=== PATIENT | male | born 1950 | race Two or more races ===

== ENCOUNTER → 2017-05-30 | Outpatient (CLI) | payer MEDICARE ==
[~2017-05-30] MED LIST: /WARF5TA; ATEN25TA; GLIP5TAB20; GLUC1000; HYDR25TA6; LIPI20TA; PRIN20TA3
[2017-05-30 13:40] LABS: BASO % 0.6 % (0.0-1.0); EOS # 0.2 K/mm3 (0.0-0.50); EOS % 3.1 % (0.0-3.0); LARGE UNSTAINED CELL # 0.2 K/mm3 (0.0-0.4); LARGE UNSTAINED CELL % 2.1 % (0.0-4.0); LYMPH # 1.2 K/mm3 (1.5-4.5); LYMPH % 16.7 % (24.0-44.0); MEAN CORPUSCULAR HEMOGLOBIN 31.7 pg (27.0-33.0); MEAN CORPUSCULAR HGB CONC 34.9 g/dl (32.0-36.5); MONO # 0.4 K/mm3 (0.0-0.8); MONO % 5.9 % (0.0-5.0); NEUTROPHILS % 71.7 % (36.0-66.0); PLATELET COUNT, AUTOMATED 200 k/mm3 (150-450); RED CELL DISTRIBUTION WIDTH 12.2 % (11.5-14.5)
[2017-05-30 14:49] LABS: ALBUMIN/GLOBULIN RATIO 1.6 (1.00-1.93); BILIRUBIN,TOTAL 0.5 MG/DL (0.2-1.0); CALCIUM LEVEL 8.6 MG/DL (8.8-10.2); CREATININE FOR GFR 1.32 MG/DL (0.70-1.30); GLOMERULAR FILTRATION RATE 57.8 (>49); TOTAL PROTEIN 6.5 GM/DL (6.4-8.2)
== END ==
LOC: M WUC 08:32
PROVIDERS: ATTEND Nurse Practitioner Family
DX: E11.9 Type 2 diabetes mellitus without complications (principal); F03.90 Unspecified dementia, unspecified severity, without behavioral disturbance, psychotic disturbance, mood disturbance, and anxiety; I25.10 Atherosclerotic heart disease of native coronary artery without angina pectoris
CPT/HCPCS: 36415; 80053; 80061; 82043; 83036; 85025; G0463

== ENCOUNTER → 2017-07-12 | Outpatient (CLI) | payer MEDICARE ==
--- NOTE | 2017-07-12 09:27 | REP ---
CT Head without contrast HISTORY: Dementia COMPARISON: None Areas of decreased attenuation are present in the periventricular white matter. This represents small-vessel ischemic disease. There is no intraparenchymal hemorrhage, acute infarct, mass or midline shift. The ventricular system and cortical sulci are dilated consistent with mild volume loss. There is no extra cerebral collection. There is no fracture. The visualized sinuses are clear. IMPRESSION: 1. Small vessel ischemic disease. 2. Mild volume loss. Signed by Darren Mcintosh MD 07/12/2017 09:20 A
== END ==
LOC: M RAD 08:56
PROVIDERS: ATTEND Psychiatry & Neurology Neurology
DX: F01.50 Vascular dementia, unspecified severity, without behavioral disturbance, psychotic disturbance, mood disturbance, and anxiety (principal); G30.1 Alzheimer's disease with late onset; F02.80 Dementia in other diseases classified elsewhere, unspecified severity, without behavioral disturbance, psychotic disturbance, mood disturbance, and anxiety

== ENCOUNTER → 2017-07-28 | Outpatient (CLI) | payer MEDICARE ==
--- NOTE | 2017-07-28 13:12 | REP ---
Duplex carotid sonography: History: Retinal hemorrhage left eye. Findings: Antegrade flow was observed in both vertebral arteries. Right carotid: The right common carotid artery is unremarkable on two-dimensional scanning. There is mild mixed plaquing in the right carotid bulb, right ICA and right ECA on two-dimensional scanning. Color flow and spectral Doppler interrogation are unremarkable on the right. Velocity chart right carotid: Right CCA PSV 61 cm/s Right ICA PSV 57 NILE 17 Right ECA PSV 60 Right ICA/CCA ratio normal 0.9. Impression: 0-15% category narrowing in the right ICA by Doppler velocity criteria. Left carotid: The left common carotid artery is unremarkable on two-dimensional scanning. There is mild mixed plaquing in the bulb and proximal ICA on two-dimensional scanning. Color flow and spectral Doppler interrogation are unremarkable on the left. Velocity chart left carotid: Left CCA PSV 59 cm/s Left ICA PSV 70 EDV 33 Left ECA PSV 48 Left ICA/CCA ratio normal 1.2. Impression: 0-15% narrowing in the left ICA by Doppler velocity criteria. Signed by Jameson Sánchez MD 07/28/2017 02:46 P
== END ==
LOC: M RAD 10:41
PROVIDERS: ATTEND Ophthalmology
DX: H35.62 Retinal hemorrhage, left eye (principal); I65.23 Occlusion and stenosis of bilateral carotid arteries

== ENCOUNTER → 2017-11-28 | Outpatient (REF) | payer MEDICARE ==
[2017-11-28 16:05] LABS: ANION GAP 9 MEQ/L (8-16); BASO % 0.4 % (0.0-1.0); BLOOD UREA NITROGEN 20 MG/DL (7-18); CALCIUM LEVEL 8.9 MG/DL (8.8-10.2); CARBON DIOXIDE LEVEL 26 MEQ/L (21-32); CHLORIDE LEVEL 102 MEQ/L (98-107); EOS % 0.3 % (0.0-3.0); GLOMERULAR FILTRATION RATE > 60.0 (>49); GLUCOSE, FASTING 122 MG/DL (80-110); HEMATOCRIT 39.9 % (42.0-52.0); HEMOGLOBIN 13.6 g/dl (14.0-18.0); IMMATURE GRANULOCYTE % 0.4 % (0-0); LYMPH # 1.8 10^3/uL (1.5-4.5); MEAN CORPUSCULAR HEMOGLOBIN 30.5 pg (27.0-33.0); MEAN CORPUSCULAR HGB CONC 34.1 g/dl (32.0-36.5); MEAN CORPUSCULAR VOLUME 89.5 fl (80.0-96.0); MONO # 0.7 10^3/uL (0.0-0.8); MONO % 7.6 % (0.0-5.0); NEUTROPHILS # 6.8 10^3/uL (1.8-7.7); NEUTROPHILS % 72.3 % (36.0-66.0); PLATELET COUNT, AUTOMATED 279 10^3/uL (150-450); POTASSIUM SERUM 4.3 MEQ/L (3.5-5.1); RED BLOOD COUNT 4.46 10^6/uL (4.30-6.10); RED CELL DISTRIBUTION WIDTH 12.3 % (11.5-14.5); SODIUM LEVEL 137 MEQ/L (136-145); WHITE BLOOD COUNT 9.4 10^3/uL (4.0-10.0)
[2017-11-28 16:46] LABS: ESTIMATED AVERAGE GLUCOSE 143 MG/DL (60-110); HEMOGLOBIN A1c 6.6 %
== END ==
LOC: M SFHCPLAZ 12:32
DX: E11.29 Type 2 diabetes mellitus with other diabetic kidney complication (principal); D64.9 Anemia, unspecified
CPT/HCPCS: 83036

== ENCOUNTER 2018-01-13 08:27 | Emergency (ER) | payer MEDICARE ==
[2018-01-13 09:29] LABS: BASO % 0.5 % (0.0-1.0); EOS # 0.1 10^3/uL (0.0-0.50); EOS % 1.4 % (0.0-3.0); HEMATOCRIT 35.4 % (42.0-52.0); HEMOGLOBIN 11.7 g/dl (14.0-18.0); IMMATURE GRANULOCYTE % 0.5 % (0-3.0); LYMPH # 1.2 10^3/uL (1.5-4.5); LYMPH % 16.1 % (24.0-44.0); MEAN CORPUSCULAR HEMOGLOBIN 31.1 pg (27.0-33.0); MEAN CORPUSCULAR HGB CONC 33.1 g/dl (32.0-36.5); MEAN CORPUSCULAR VOLUME 94.1 fl (80.0-96.0); MONO # 0.7 10^3/uL (0.0-0.8); MONO % 9.1 % (0.0-5.0); NEUTROPHILS # 5.3 10^3/uL (1.8-7.7); NEUTROPHILS % 72.4 % (36.0-66.0); PLATELET COUNT, AUTOMATED 272 10^3/uL (150-450); RED BLOOD COUNT 3.76 10^6/uL (4.30-6.10); RED CELL DISTRIBUTION WIDTH 13.3 % (11.5-14.5); WHITE BLOOD COUNT 7.3 10^3/uL (4.0-10.0)
[2018-01-13 09:46] LABS: ANION GAP 9 MEQ/L (8-16); BLOOD UREA NITROGEN 16 MG/DL (7-18); CALCIUM LEVEL 8.7 MG/DL (8.8-10.2); CARBON DIOXIDE LEVEL 26 MEQ/L (21-32); CHLORIDE LEVEL 105 MEQ/L (98-107); CPK CREATINE PHOSPHOKINASE 115 U/L (39-308); CREATININE FOR GFR 0.96 MG/DL (0.70-1.30); GLOMERULAR FILTRATION RATE > 60.0 (>49); GLUCOSE, FASTING 269 MG/DL (70-100); MAGNESIUM LEVEL 1.8 MG/DL (1.8-2.4); POTASSIUM SERUM 4.3 MEQ/L (3.5-5.1); SODIUM LEVEL 140 MEQ/L (136-145); TROPONIN I 0.02 NG/ML (< 0.10)
[2018-01-13 09:52] LABS: CK-MB VALUE MASS 2.2 NG/ML (0.0-3.6); MB/CK RELATIVE INDEX 1.91 (< OR =4)
[2018-01-13 11:49] LABS: CPK CREATINE PHOSPHOKINASE 114 U/L (39-308); TROPONIN I < 0.02 NG/ML (< 0.10)
[2018-01-13 11:50] LABS: CK-MB VALUE MASS 1.8 NG/ML (0.0-3.6); MB/CK RELATIVE INDEX 1.57 (< OR =4)
== END 2018-01-13 12:33 | disposition home or self-care (01) ==
LOC: M ED 08:27
DX: R00.2 Palpitations (principal); I48.2 Chronic atrial fibrillation; I25.10 Atherosclerotic heart disease of native coronary artery without angina pectoris; I10 Essential (primary) hypertension; E11.9 Type 2 diabetes mellitus without complications; Z79.01 Long term (current) use of anticoagulants; Z79.84 Long term (current) use of oral hypoglycemic drugs; Z79.899 Other long term (current) drug therapy; Z95.0 Presence of cardiac pacemaker; Z95.5 Presence of coronary angioplasty implant and graft
CPT/HCPCS: 93005

== ENCOUNTER → 2018-01-31 | Outpatient (REF) | payer MEDICARE, MEDICAID ==
[2018-01-31 08:10] LABS: HEMATOCRIT 38.5 % (42.0-52.0); HEMOGLOBIN 12.8 g/dl (14.0-18.0); MEAN CORPUSCULAR HEMOGLOBIN 31.1 pg (27.0-33.0); MEAN CORPUSCULAR HGB CONC 33.2 g/dl (32.0-36.5); MEAN CORPUSCULAR VOLUME 93.4 fl (80.0-96.0); PLATELET COUNT, AUTOMATED 271 10^3/uL (150-450); RED BLOOD COUNT 4.12 10^6/uL (4.30-6.10); RED CELL DISTRIBUTION WIDTH 12.6 % (11.5-14.5); WHITE BLOOD COUNT 7.8 10^3/uL (4.0-10.0)
[2018-01-31 08:34] LABS: ESTIMATED AVERAGE GLUCOSE 143 MG/DL (60-110); HEMOGLOBIN A1c 6.6 %
[2018-01-31 08:44] LABS: MAU/CREAT RATIO 52.8 MCG/MG (0.0-30.0)
[2018-01-31 08:46] LABS: ALBUMIN 4.2 GM/DL (3.2-5.2); ALBUMIN/GLOBULIN RATIO 1.62 (1.00-1.93); ALKALINE PHOSPHATASE 56 U/L (45-117); ALT/SGPT 23 U/L (12-78); ANION GAP 10 MEQ/L (8-16); AST/SGOT 17 U/L (7-37); BILIRUBIN,TOTAL 0.6 MG/DL (0.2-1.0); BLOOD UREA NITROGEN 19 MG/DL (7-18); CALCIUM LEVEL 8.9 MG/DL (8.8-10.2); CARBON DIOXIDE LEVEL 26 MEQ/L (21-32); CHLORIDE LEVEL 106 MEQ/L (98-107); CHOLESTEROL LEVEL 150 MG/DL (<200); CHOLESTEROL RISK RATIO 3.846 (<5); CREATININE FOR GFR 1.09 MG/DL (0.70-1.30); GLOMERULAR FILTRATION RATE > 60.0 (>49); GLUCOSE, FASTING 179 MG/DL (70-100); HDL CHOLESTEROL 39 MG/DL (>40); LDL CHOLESTEROL 78.6 MG/DL (<100); NON-HDL-C 111 MG/DL; POTASSIUM SERUM 4.4 MEQ/L (3.5-5.1); SODIUM LEVEL 142 MEQ/L (136-145); TOTAL PROTEIN 6.8 GM/DL (6.4-8.2); TRIGLYCERIDES LEVEL 162 MG/DL (<150)
== END ==
LOC: SKLAB6 07:00
DX: I48.91 Unspecified atrial fibrillation (principal); E11.9 Type 2 diabetes mellitus without complications; D64.9 Anemia, unspecified; I11.0 Hypertensive heart disease with heart failure; G30.0 Alzheimer's disease with early onset; I50.9 Heart failure, unspecified
CPT/HCPCS: 84443

== ENCOUNTER → 2018-05-04 | Outpatient (REF) | payer MEDICARE, MEDICAID ==
[2018-05-04 08:26] LABS: CHOLESTEROL LEVEL 105 MG/DL (<200); HDL CHOLESTEROL 41 MG/DL (>40); LDL CHOLESTEROL 31.4 MG/DL (<100); NON-HDL-C 64 MG/DL; TRIGLYCERIDES LEVEL 163 MG/DL (<150)
[2018-05-04 08:32] LABS: ESTIMATED AVERAGE GLUCOSE 140 MG/DL (60-110); HEMOGLOBIN A1c 6.5 %
== END ==
LOC: SKLAB6 07:00
DX: F03.91 Unspecified dementia, unspecified severity, with behavioral disturbance (principal); E11.9 Type 2 diabetes mellitus without complications
CPT/HCPCS: 83036

== ENCOUNTER → 2018-08-10 | Outpatient (REF) | payer MEDICARE, MEDICAID ==
[2018-08-10 09:56] LABS: ANION GAP 8 MEQ/L (8-16); BLOOD UREA NITROGEN 19 MG/DL (7-18); CALCIUM LEVEL 9.2 MG/DL (8.8-10.2); CARBON DIOXIDE LEVEL 25 MEQ/L (21-32); CHLORIDE LEVEL 109 MEQ/L (98-107); CREATININE FOR GFR 0.93 MG/DL (0.70-1.30); GLOMERULAR FILTRATION RATE > 60.0 (>49); GLUCOSE, FASTING 106 MG/DL (70-100); POTASSIUM SERUM 4.8 MEQ/L (3.5-5.1); SODIUM LEVEL 142 MEQ/L (136-145)
== END ==
LOC: SKLAB8 07:00
DX: I48.91 Unspecified atrial fibrillation (principal); E78.5 Hyperlipidemia, unspecified
CPT/HCPCS: 80048

== ENCOUNTER → 2018-10-18 | Outpatient (REF) | payer MEDICARE, MEDICAID ==
[2018-10-18 16:21] LABS: HEMATOCRIT 34.4 % (42.0-52.0); HEMOGLOBIN 11.3 g/dl (13.5-17.5); MEAN CORPUSCULAR HEMOGLOBIN 30.5 pg (27.0-33.0); MEAN CORPUSCULAR HGB CONC 32.8 g/dl (32.0-36.5); MEAN CORPUSCULAR VOLUME 92.7 fl (80.0-96.0); PLATELET COUNT, AUTOMATED 251 10^3/uL (150-450); RED BLOOD COUNT 3.71 10^6/uL (4.30-6.10); RED CELL DISTRIBUTION WIDTH 12.6 % (11.5-14.5); WHITE BLOOD COUNT 8.6 10^3/uL (4.0-10.0)
[2018-10-18 16:43] LABS: ANION GAP 10 MEQ/L (8-16); BLOOD UREA NITROGEN 18 MG/DL (7-18); CALCIUM LEVEL 8.4 MG/DL (8.8-10.2); CARBON DIOXIDE LEVEL 24 MEQ/L (21-32); CHLORIDE LEVEL 107 MEQ/L (98-107); CREATININE FOR GFR 1.05 MG/DL (0.70-1.30); GLOMERULAR FILTRATION RATE > 60.0 (>49); GLUCOSE, FASTING 134 MG/DL (70-100); POTASSIUM SERUM 4.4 MEQ/L (3.5-5.1); SODIUM LEVEL 141 MEQ/L (136-145)
== END ==
LOC: SKLAB8 14:50
DX: E11.9 Type 2 diabetes mellitus without complications (principal)
CPT/HCPCS: 80048

== ENCOUNTER → 2018-11-09 | Outpatient (REF) | payer MEDICARE, MEDICAID ==
[~2018-11-09] MED LIST changes: +ELIQ5TAB PO; +GLIP1TAB51 PO; +GLIP2.5T6 PO; +LISI-538 PO; +METF10004 PO; +METO1TAB32 PO; +PLAV1TAB2 PO; +QUET1TAB7 PO; +TRAZ-160 PO
[2018-11-09 08:10] LABS: ALBUMIN 3.4 GM/DL (3.2-5.2); ALT/SGPT 15 U/L (12-78); BILIRUBIN,TOTAL 0.3 MG/DL (0.2-1.0); BLOOD UREA NITROGEN 15 MG/DL (7-18); CALCIUM LEVEL 8.2 MG/DL (8.8-10.2); CARBON DIOXIDE LEVEL 27 MEQ/L (21-32); CHLORIDE LEVEL 107 MEQ/L (98-107); CHOLESTEROL LEVEL 108 MG/DL (<200); CHOLESTEROL RISK RATIO 3.176 (<5); CREATININE FOR GFR 0.93 MG/DL (0.70-1.30); GLOMERULAR FILTRATION RATE > 60.0 (>49); GLUCOSE, FASTING 90 MG/DL (70-100); HDL CHOLESTEROL 34 MG/DL (>40); LDL CHOLESTEROL 43 MG/DL (<100); NON-HDL-C 74 MG/DL; POTASSIUM SERUM 4.3 MEQ/L (3.5-5.1); SODIUM LEVEL 143 MEQ/L (136-145); TOTAL PROTEIN 5.9 GM/DL (6.4-8.2); TRIGLYCERIDES LEVEL 154 MG/DL (<150)
[2018-11-09 08:25] LABS: HEMOGLOBIN A1c 6.2 %
== END ==
LOC: SKLAB8 07:00
PROVIDERS: ATTEND Family Medicine
DX: F03.90 Unspecified dementia, unspecified severity, without behavioral disturbance, psychotic disturbance, mood disturbance, and anxiety (principal); I48.91 Unspecified atrial fibrillation; E11.9 Type 2 diabetes mellitus without complications

== ENCOUNTER → 2018-11-22 | Outpatient (REF) | payer MEDICARE, MEDICAID ==
--- NOTE | 2018-11-22 16:48 | REP ---
LUMBAR SPINE, FIVE VIEWS: HISTORY: Back pain. There is no acute fracture or subluxation. The lumbar intervertebral discs are decreased in height consistent with disc degeneration. Osteophytes are present throughout the lumbar spine. There is narrowing of the L4-5 and L5-S1 facet joints. IMPRESSION: Degenerative change as described above. Electronically Signed by Darren Mcintosh MD 11/22/2018 04:51 P
== END ==
LOC: SKLAB8 14:00
PROVIDERS: ATTEND Family Medicine
DX: M54.5 Low back pain (principal)

== ENCOUNTER → 2019-02-01 | Outpatient (REF) | payer MEDICARE, MEDICAID ==
[~2019-02-01] MED LIST changes: +GLIP10TA18 PO; -GLIP1TAB51 PO
[2019-02-01 11:32] LABS: AMORPHOUS SEDIMENT SMALL (NEGATIVE); APPEARANCE, URINE TURBID (CLEAR); BACTERIA, URINE AUTO 2+ (NEGATIVE); BILIRUBIN, URINE AUTO NEGATIVE (NEGATIVE); BLOOD, URINE BLOOD 3+ (NEGATIVE); COLOR, URINE AMBER (YELLOW); GLUCOSE, URINE (UA) AUTO NEGATIVE (NEGATIVE); KETONE, URINE AUTO NEGATIVE (NEGATIVE); LEUKOCYTE ESTERASE, URINE AUTO 3+ (NEGATIVE); MUCUS, URINE SMALL (NEGATIVE); NITRITE, URINE AUTO NEGATIVE (NEGATIVE); PROTEIN, URINE AUTO 2+ mg/dL (NEGATIVE); RBC, URINE AUTO TNTC /HPF (0-3); RENAL EPITHELIAL CELLS 3 /HPF; SPECIFIC GRAVITY URINE AUTO 1.013 (1.002-1.035); SQUAMOUS EPITHELIAL CELL UR AU 2 /HPF (0-6); UROBILINOGEN, URINE AUTO 0.2 mg/dL (0.0-2.0); WBC, URINE AUTO TNTC /HPF (0-3)
[2019-02-01 11:39] LABS: HEMATOCRIT 35.4 % (42.0-52.0); HEMOGLOBIN 11.6 g/dl (13.5-17.5); MEAN CORPUSCULAR HEMOGLOBIN 29.7 pg (27.0-33.0); MEAN CORPUSCULAR HGB CONC 32.8 g/dl (32.0-36.5); MEAN CORPUSCULAR VOLUME 90.8 fl (80.0-96.0); PLATELET COUNT, AUTOMATED 357 10^3/uL (150-450); WHITE BLOOD COUNT 12.8 10^3/uL (4.0-10.0)
[2019-02-01 12:10] LABS: ERYTHROCYTE SEDIMENTATION RATE 25 mm/hr (0-20)
[2019-02-01 12:34] LABS: ALBUMIN 3.5 GM/DL (3.2-5.2); ALT/SGPT 29 U/L (12-78); BILIRUBIN,TOTAL 0.2 MG/DL (0.2-1.0); BLOOD UREA NITROGEN 20 MG/DL (7-18); C REACTIVE PROTEIN QUANTITATIV 0.57 MG/DL (0.00-0.30); CALCIUM LEVEL 8.7 MG/DL (8.8-10.2); CARBON DIOXIDE LEVEL 29 MEQ/L (21-32); CHLORIDE LEVEL 105 MEQ/L (98-107); CREATININE FOR GFR 1.18 MG/DL (0.70-1.30); GLOMERULAR FILTRATION RATE > 60.0 (>49); GLUCOSE, FASTING 110 MG/DL (70-100); POTASSIUM SERUM 4.8 MEQ/L (3.5-5.1); SODIUM LEVEL 137 MEQ/L (136-145); TOTAL PROTEIN 6.7 GM/DL (6.4-8.2)
== END ==
LOC: SKLAB8 10:58
PROVIDERS: ATTEND Family Medicine
DX: R31.9 Hematuria, unspecified (principal)

== ENCOUNTER → 2019-02-05 | Outpatient (REF) | payer MEDICARE, MEDICAID ==
[2019-02-05 08:38] LABS: CALCIUM LEVEL 9.1 MG/DL (8.8-10.2); CREATININE FOR GFR 1.27 MG/DL (0.70-1.30); POTASSIUM SERUM 5.1 MEQ/L (3.5-5.1)
== END ==
LOC: SKLAB8 08:00
PROVIDERS: ATTEND Family Medicine
DX: I10 Essential (primary) hypertension (principal)

== ENCOUNTER → 2019-02-08 | Outpatient (REF) | payer MEDICARE, MEDICAID ==
[2019-02-08 08:59] LABS: CALCIUM LEVEL 9.5 MG/DL (8.8-10.2); CREATININE FOR GFR 1.32 MG/DL (0.70-1.30); GLOMERULAR FILTRATION RATE 57.4 (>49); POTASSIUM SERUM 5.1 MEQ/L (3.5-5.1); THYROID STIMULATING HORMONE 1.56 uIU/ML (0.358-3.740)
== END ==
LOC: SKLAB8 08:00
PROVIDERS: ATTEND Family Medicine
DX: I48.91 Unspecified atrial fibrillation (principal); E11.9 Type 2 diabetes mellitus without complications; F03.90 Unspecified dementia, unspecified severity, without behavioral disturbance, psychotic disturbance, mood disturbance, and anxiety

== ENCOUNTER → 2019-02-23 | Outpatient (REF) | payer MEDICARE, MEDICAID ==
[~2019-02-23] MED LIST changes: -/WARF5TA; +COUM1TAB17
[2019-02-23 10:16] LABS: APPEARANCE, URINE CLEAR (CLEAR); BACTERIA, URINE AUTO NEGATIVE (NEGATIVE); BILIRUBIN, URINE AUTO NEGATIVE (NEGATIVE); BLOOD, URINE BLOOD NEGATIVE (NEGATIVE); COLOR, URINE YELLOW (YELLOW); GLUCOSE, URINE (UA) AUTO NEGATIVE (NEGATIVE); KETONE, URINE AUTO NEGATIVE (NEGATIVE); LEUKOCYTE ESTERASE, URINE AUTO NEGATIVE (NEGATIVE); NITRITE, URINE AUTO NEGATIVE (NEGATIVE); PROTEIN, URINE AUTO NEGATIVE (NEGATIVE); RBC, URINE AUTO 0 /HPF (0-3); SPECIFIC GRAVITY URINE AUTO 1.012 (1.002-1.035); SQUAMOUS EPITHELIAL CELL UR AU 0 /HPF (0-6); UROBILINOGEN, URINE AUTO 0.2 mg/dL (0.0-2.0); WBC, URINE AUTO 1 /HPF (0-3)
== END ==
LOC: SKLAB8 09:45
PROVIDERS: ATTEND Family Medicine
DX: F03.91 Unspecified dementia, unspecified severity, with behavioral disturbance (principal); R82.998 Other abnormal findings in urine

== ENCOUNTER → 2019-04-14 | Outpatient (REF) | payer MEDICARE, MEDICAID ==
[2019-04-14 07:15] LABS: HEMATOCRIT 31.9 % (42.0-52.0); HEMOGLOBIN 10.6 g/dl (13.5-17.5); MEAN CORPUSCULAR HGB CONC 33.2 g/dl (32.0-36.5); MEAN CORPUSCULAR VOLUME 93.3 fl (80.0-96.0); PLATELET COUNT, AUTOMATED 347 10^3/uL (150-450); RED BLOOD COUNT 3.42 10^6/uL (4.30-6.10); WHITE BLOOD COUNT 9.4 10^3/uL (4.0-10.0)
[2019-04-14 07:45] LABS: BLOOD UREA NITROGEN 17 MG/DL (7-18); CALCIUM LEVEL 8.6 MG/DL (8.8-10.2); CARBON DIOXIDE LEVEL 23 MEQ/L (21-32); CHLORIDE LEVEL 103 MEQ/L (98-107); CREATININE FOR GFR 1.03 MG/DL (0.70-1.30); GLOMERULAR FILTRATION RATE > 60.0 (>49); GLUCOSE, FASTING 220 MG/DL (70-100); POTASSIUM SERUM 4.4 MEQ/L (3.5-5.1); SODIUM LEVEL 136 MEQ/L (136-145)
== END ==
LOC: SKLAB8 04-13 22:00
PROVIDERS: ATTEND Family Medicine
DX: R23.1 Pallor (principal)

== ENCOUNTER 2019-05-09 10:42 | Observation (INO) | payer MEDICARE, MEDICAID ==
[~2019-05-09] VITALS: Ht 175.3 cm; Wt 114.8 kg
[~2019-05-09 10:42] MED LIST changes: -TRAZ-160 PO; +TRAZ-252 PO
[2019-05-09] MEDS ORDERED: LEXA1TAB2 PO (11:05)
[2019-05-09] MEDS ORDERED: RISP1TAB3 PO (11:05)
[2019-05-09] MEDS ORDERED: BUSP10TA (11:05)
[2019-05-09] MEDS ORDERED: DIVA250T67 PO (11:05)
[2019-05-09] MEDS ORDERED: LORA0.5T11 PO (11:05)
[2019-05-09] MEDS ORDERED: LISI-542 PO (11:05)
[2019-05-09] MEDS ORDERED: DULC10SU2 PR (11:05)
[2019-05-09] MEDS ORDERED: TRAZ-252 PO (11:05)
[2019-05-09] MEDS ORDERED: ASPI81TA85 PO (11:05)
[2019-05-09] MEDS ORDERED: ELIQ5TAB PO (11:05)
[2019-05-09 11:46] LABS: HEMATOCRIT 33.9 % (42.0-52.0); HEMOGLOBIN 11.1 g/dl (13.5-17.5); MEAN CORPUSCULAR HGB CONC 32.7 g/dl (32.0-36.5); MEAN CORPUSCULAR VOLUME 91.6 fl (80.0-96.0); PLATELET COUNT, AUTOMATED 237 10^3/uL (150-450); WHITE BLOOD COUNT 6.7 10^3/uL (4.0-10.0)
[2019-05-09 12:25] LABS: ACETAMINOPHEN LEVEL < 2.0 UG/ML (10.0-30.0); ALBUMIN 3.5 GM/DL (3.2-5.2); ALT/SGPT 28 U/L (12-78); BILIRUBIN,DIRECT 0.2 MG/DL (0.0-0.2); BILIRUBIN,TOTAL 0.4 MG/DL (0.2-1.0); BLOOD UREA NITROGEN 20 MG/DL (7-18); CALCIUM LEVEL 8.5 MG/DL (8.8-10.2); CARBON DIOXIDE LEVEL 23 MEQ/L (21-32); CHLORIDE LEVEL 106 MEQ/L (98-107); CREATININE FOR GFR 0.97 MG/DL (0.70-1.30); ETHYL ALCOHOL (ETHANOL) 0.003 % (0.000-0.010); GLOMERULAR FILTRATION RATE > 60.0 (>49); GLUCOSE, FASTING 104 MG/DL (70-100); POTASSIUM SERUM 4.6 MEQ/L (3.5-5.1); SALICYLATE LEVEL < 1.7 MG/DL (5.0-30.0); SODIUM LEVEL 138 MEQ/L (136-145); TOTAL PROTEIN 6.1 GM/DL (6.4-8.2)
[2019-05-09] MEDS ORDERED: HALOPERIDOL 5 MG/ML VIAL (J1630) IM STA (13:01)
[2019-05-09] MEDS ORDERED: ACET-907 PO ×2 (15:14)
[2019-05-09] MEDS ORDERED: CRES40TA PO (15:14)
[2019-05-09] MEDS ORDERED: MOM30SS PO (15:14)
[2019-05-09] MEDS ORDERED: BUSP-29 PO (15:14)
[2019-05-09] MEDS ORDERED: ENEMENE PR (15:14)
[2019-05-09] MEDS ORDERED: BISACODYL 10 MG SUPP PR PRN (15:30)
[2019-05-09] MEDS ORDERED: **NOTE PATIENT COMMENT** MISC XX SCH (15:30)
[2019-05-09] MEDS ORDERED: ACETAMINOPHEN TAB 650MG DOSE (2X325MG) PO PRN (15:30)
[2019-05-09] MEDS ORDERED: MOM 30ML SUSPENSION UDC PO PRN (15:30)
--- NOTE | 2019-05-09 15:49 | HPE ---
DATE OF ADMISSION: 05/09/2019 PRIMARY CARE PROVIDER: Dr. Dexter Almeida[facility]. PRINCIPAL DIAGNOSIS: Uncontrollable behavior in a patient with dementia. HISTORY: Darren Mesa is an unfortunately 68-year-old with advanced dementia. He was sent over by [facility] because his behavior was too disruptive to manage there, this is outlined in the notes from the nurses, but to summarize, he was walking around naked, he was picking his skin and leaving blood on the med cart. He was saying inappropriate things to the nurses. He was acting in childish behavior with a lot of mood swings and sexual verbalizations. It should be noted that he had a psychiatric admission at [facility] earlier in 2019. Medications were adjusted, but it does not sound as though that it made any difference in behavior. He used to be followed by [facility]. Most recently, 08/09/2017, by Dr. Sumaya Levi and Dr. Cunningham. He was seen by a psychiatric consultation on 02/14/[address] Yarbrough. I reviewed his office chart, he previously had Dr. Ryan Coker as the primary care provider. At that time he was being treated for atrial fibrillation, coronary artery disease with coronary artery bypass graft (CABG) times five and coronary stents done in [place], [place] and a pacemaker, history of hypertension, hyperlipidemia, type 2 diabetes with proteinuria. FAMILY HISTORY: Father of cancer. Mother had cancer and history of thyroid disease. SOCIAL HISTORY: He does not smoke. He had significant alcohol intake. He apparently has a college education. ALLERGIES: None. MEDICATIONS: Per flow sheet. REVIEW OF SYSTEMS: Not obtainable. PHYSICAL EXAMINATION: VITAL SIGNS: Per flow sheet GENERAL APPEARANCE: He is comfortable and in no distress. He is visiting his sitter. He clearly has advanced dementia. He does follow commands. Struck by the emotional lability of his interaction. When I asked him to sit down, he looked very distraught and asked if he had been a "bad boy." Other times he seemed to become agitated over minimal provocation. Pupils are equal, round and react to light. Tympanic membranes normal. Neck with no masses. LUNGS: Clear. HEART: Without murmur. ABDOMEN: Soft, nontender. No masses. EXTREMITIES: No peripheral edema. NEUROLOGIC: Nonfocal exam. LABORATORIES: Complete blood count (CBC) unremarkable. CMP unremarkable. Last hemoglobin A1/c was just 1 month ago. TSH normal. Urine could not be obtained due to behavioral problems. He had an Escherichia (E) coli urinary tract infection (UTI) on 02/01/2019. IMPRESSION: 1. Dementia with behavioral disturbance, which currently is beyond what the nursing staff at [facility] are able to safely handle. PLAN: The patient will be admitted to the [facility] service. The patient has a Medical Orders for Life Sustaining Treatment (MOLST) form, which is comfort measures only. It also specifies do not hospitalize unless there are symptoms beyond the capacity of the alf facility to handle. Plan to continue his current medications. We will increase the dose of his Risperdal. He just had a psychiatry consultation so I am not sure what we are going to gain from repeating that. Some of his behavior suggests that he might have pseudobulbar affect, particularly the emotional lability. He may benefit on medication, Nuedexta, which is a dextromethorphan / quinidine with Food and Drug Administration approval for pseudobulbar affect. I will see if pharmacy can obtain this. It is usually dosed 20 mg /10 mg every 12 hours as a maintenance dose after taking it once daily for 7 days. Other medications used for pseudobulbar affect include SSRIs and TZAs, Luvox 100 mg per day as a target dose had some success. Diabetes. Would continue his current regimen. Atrial fibrillation. He continues on Eliquis. Coronary artery disease. Antiplatelet drugs.
[2019-05-09] MEDS: LORazepam 2 MG/ML VIAL (J2060) IM PRN (16:56)
[2019-05-09] MEDS: metFORMIN (GLUCOPHAGE) 1000 MG TABLET PO SCH (16:56)
[2019-05-09] MEDS: busPIRone 10 MG TAB PO SCH ×2 (16:56→22:20)
[2019-05-09 20:00] VITALS: BP 142/80
[2019-05-09 20:00] LABS: AMPHETAMINES LEVEL URINE NEGATIVE (NEGATIVE); BARBITURATES URINE NEGATIVE (NEGATIVE); BENZODIAZEPINES URINE NEGATIVE (NEGATIVE); CANNABINOIDS URINE NEGATIVE (NEGATIVE); COCAINE METABOLITE URINE NEGATIVE (NEGATIVE); METHADONE URINE NEGATIVE (NEGATIVE); OPIATES URINE NEGATIVE (NEGATIVE); PHENCYCLIDINE URINE NEGATIVE (NEGATIVE)
[2019-05-09] MEDS ORDERED: LORazepam 0.5 MG TAB PO SCH (21:00)
[2019-05-09] MEDS: DIVALPROEX 250 MG TAB PO SCH (22:18)
[2019-05-09] MEDS: traZODone 50 MG TAB PO SCH (22:19)
[2019-05-09] MEDS: LISINOPRIL 5 MG TAB PO SCH (22:19)
[2019-05-09] MEDS: risperiDONE 2 MG TAB PO SCH (22:19)
[2019-05-09] MEDS: fluvoxaMINE MALEATE 50 MG TAB PO SCH (22:19)
[2019-05-09] MEDS: APIXABAN 5 MG TAB (ELIQUIS) PO SCH (22:19)
[2019-05-09] MEDS: ROSUVASTATIN 10 MG TAB (CRESTOR) PO SCH (22:20)
[2019-05-09] MEDS: METOPROLOL SUCC *XL* 25MG TAB (TopROL *XL*) PO SCH (22:20)
[2019-05-10 06:00] VITALS: BP 122/60
[2019-05-10] MEDS: risperiDONE 2 MG TAB PO SCH ×2 (08:06→21:14)
[2019-05-10] MEDS: APIXABAN 5 MG TAB (ELIQUIS) PO SCH ×2 (08:06→21:16)
[2019-05-10] MEDS: metFORMIN (GLUCOPHAGE) 1000 MG TABLET PO SCH ×2 (08:06→17:15)
[2019-05-10] MEDS: ASPIRIN 81 MG ENTERIC TAB PO SCH (08:06)
[2019-05-10] MEDS: busPIRone 10 MG TAB PO SCH ×3 (08:06→21:14)
[2019-05-10] MEDS: DIVALPROEX 250 MG TAB PO SCH ×2 (08:06→21:14)
[2019-05-10] MEDS: ESCITALOPRAM OXALATE 10 MG TAB (LEXAPRO) PO SCH (08:06)
[2019-05-10] MEDS: ACETAMINOPHEN TAB 650MG DOSE (2X325MG) PO SCH (08:07)
[2019-05-10] MEDS ORDERED: RISP2TAB32 PO (11:39)
[2019-05-10] MEDS ORDERED: FLUV50TA PO (11:39)
--- NOTE | 2019-05-10 12:19 | DSES ---
DATE OF ADMISSION: 05/09/2019 DATE OF DISCHARGE: PRINCIPAL DIAGNOSIS: Behavioral disturbance. HISTORY: Darren Mesa has dementia. He was sent by [facility] for uncontrolled behavior with behaviors that are outlined in my history and physical. He had a Medical Orders for Life-Sustaining Treatment (MOLST) form that specified not to be hospitalized unless he had a condition that could not be controlled at the halfway. HOSPITAL COURSE: I admitted him to a medical bed and adjusted his regimen. In particular, we stopped the Ativan as I was concerned that he had some frontal lobe release behaviors, and addition of Ativan or other benzodiazepines would only exacerbate that problem. I increased his Risperdal and started him on Luvox 50 mg daily under the belief that he was exhibiting some pseudobulbar affect behavior, particularly his emotional lability. (He would potentially benefit from Nuedexta, which is FDA approved for pseudobulbar affect, 20 mg/10 mg daily for seven days then twice a day. Unfortunately, that is not our hospital formulary; it would have to be ordered after he is back at [facility]. He was not seen by psychiatry as they just did a consult on him a few months ago. Discussion with the on-call psychiatrist took place this morning, and they suggested avoiding any benzodiazepines, for reasons that I have outlined above, and considering using a dissolvable Zyprexa strip that could augment his current regimen. They recommend 2.5 to 5 mg as needed up to three times a day. I did not change any of his other regimen. SIGNIFICANT LABS: Labs were outlined yesterday. Despite the fact he came from the halfway, someone felt obligated to get a tox screen on him last night, which showed that he is not ingesting anything that he would not be given by the nurses at the halfway. DISPOSITION: He is discharged back to [facility]. His regimen has been changed.
[2019-05-10 14:00] VITALS: BP 140/79
[2019-05-10 18:00] VITALS: BP 153/78
[2019-05-10] MEDS: fluvoxaMINE MALEATE 50 MG TAB PO SCH (21:14)
[2019-05-10] MEDS: METOPROLOL SUCC *XL* 25MG TAB (TopROL *XL*) PO SCH (21:15)
[2019-05-10] MEDS: traZODone 50 MG TAB PO SCH (21:16)
[2019-05-10] MEDS: LISINOPRIL 5 MG TAB PO SCH (21:16)
[2019-05-10 22:00] VITALS: BP 140/68
[2019-05-11] MEDS: LORazepam 2 MG/ML VIAL (J2060) IM PRN (03:00)
[2019-05-11] MEDS ORDERED: OLANZapine 2.5MG TABLET PO ONE (04:00)
[2019-05-11 06:00] VITALS: BP 116/60
[2019-05-11] MEDS: metFORMIN (GLUCOPHAGE) 1000 MG TABLET PO SCH ×2 (08:33→17:14)
[2019-05-11] MEDS: busPIRone 10 MG TAB PO SCH ×3 (08:33→19:55)
[2019-05-11] MEDS: DIVALPROEX 250 MG TAB PO SCH ×2 (08:33→19:56)
[2019-05-11] MEDS: ESCITALOPRAM OXALATE 10 MG TAB (LEXAPRO) PO SCH (08:33)
[2019-05-11] MEDS: ASPIRIN 81 MG ENTERIC TAB PO SCH (08:33)
[2019-05-11] MEDS: risperiDONE 2 MG TAB PO SCH ×2 (08:33→19:56)
[2019-05-11] MEDS: ACETAMINOPHEN TAB 650MG DOSE (2X325MG) PO SCH (08:34)
[2019-05-11] MEDS: APIXABAN 5 MG TAB (ELIQUIS) PO SCH ×2 (08:34→19:56)
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
[2019-05-11 13:42] LABS: HEMATOCRIT 35.5 % (42.0-52.0); HEMOGLOBIN 11.5 g/dl (13.5-17.5); MEAN CORPUSCULAR HEMOGLOBIN 29.3 pg (27.0-33.0); MEAN CORPUSCULAR HGB CONC 32.4 g/dl (32.0-36.5); MEAN CORPUSCULAR VOLUME 90.3 fl (80.0-96.0); PLATELET COUNT, AUTOMATED 290 10^3/uL (150-450); RED BLOOD COUNT 3.93 10^6/uL (4.30-6.10); WHITE BLOOD COUNT 6.6 10^3/uL (4.0-10.0)
[2019-05-11 14:10] LABS: ALBUMIN 3.3 GM/DL (3.2-5.2); ALT/SGPT 23 U/L (12-78); BILIRUBIN,TOTAL 0.4 MG/DL (0.2-1.0); BLOOD UREA NITROGEN 15 MG/DL (7-18); CALCIUM LEVEL 9.2 MG/DL (8.8-10.2); CARBON DIOXIDE LEVEL 25 MEQ/L (21-32); CHLORIDE LEVEL 104 MEQ/L (98-107); CREATININE FOR GFR 1.02 MG/DL (0.70-1.30); FOLATE 15.7 NG/ML (>5.4); GLOMERULAR FILTRATION RATE > 60.0 (>49); GLUCOSE, FASTING 143 MG/DL (70-100); POTASSIUM SERUM 4.4 MEQ/L (3.5-5.1); SODIUM LEVEL 140 MEQ/L (136-145); VITAMIN B12 LEVEL 241 PG/ML (247-911)
--- NOTE | 2019-05-11 14:39 | REP ---
PORTABLE CHEST: AP portable view of the chest is performed and compared to prior study of 03/27/2010. There is mild cardiomegaly. There is no acute infiltrate. There is calcification of the thoracic aorta. Mediastinal silhouette is unremarkable. There is a left single-lead pacemaker. Multiple sternal wires are present. IMPRESSION: Mild cardiomegaly. No acute infiltrate. Unreviewed
[2019-05-11 16:01] LABS: APPEARANCE, URINE CLEAR (CLEAR); BACTERIA, URINE AUTO NEGATIVE (NEGATIVE); BILIRUBIN, URINE AUTO NEGATIVE (NEGATIVE); BLOOD, URINE BLOOD NEGATIVE (NEGATIVE); COLOR, URINE YELLOW (YELLOW); GLUCOSE, URINE (UA) AUTO NEGATIVE (NEGATIVE); KETONE, URINE AUTO NEGATIVE (NEGATIVE); LEUKOCYTE ESTERASE, URINE AUTO NEGATIVE (NEGATIVE); MUCUS, URINE SMALL (NEGATIVE); NITRITE, URINE AUTO NEGATIVE (NEGATIVE); PROTEIN, URINE AUTO NEGATIVE (NEGATIVE); RBC, URINE AUTO 2 /HPF (0-3); SPECIFIC GRAVITY URINE AUTO 1.011 (1.002-1.035); SQUAMOUS EPITHELIAL CELL UR AU 0 /HPF (0-6); UROBILINOGEN, URINE AUTO 0.2 mg/dL (0.0-2.0); WBC, URINE AUTO 1 /HPF (0-3)
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
[2019-05-11] MEDS: fluvoxaMINE MALEATE 50 MG TAB PO SCH (19:55)
[2019-05-11] MEDS: LISINOPRIL 5 MG TAB PO SCH (19:56)
[2019-05-11 19:57] VITALS: BP 160/78
[2019-05-11] MEDS: traZODone 50 MG TAB PO SCH (19:57)
[2019-05-11] MEDS: METOPROLOL SUCC *XL* 25MG TAB (TopROL *XL*) PO SCH (19:57)
[2019-05-11] MEDS: ROSUVASTATIN 10 MG TAB (CRESTOR) PO SCH (19:57)
--- NOTE | 2019-05-12 16:59 | ECGEPIP ---
[facility] Test Date: 2019-05-11 Pat Name: KANIKA MONTAÑO Department: Room: [place] [address] Gender: Male Ld Teacher: DARINEL : 1950 Requested By: LEONELA Adame PA-C Order Number: [id number] Reading MD: Luis Mcgill Measurements Intervals [place] Rate: 50 P: NM: -1 QRS: 53 QRSD: 102 T: 232 QT: 489 QTc: 448 Interpretive Statements Atrial fibrillation Predominantly paced ventricular complexes Elem complexes reveal intraventricular conduction delay with nonspecific ST-T wave abnormalities Compared to prior tracing of 01/13/2018, more pacemaker activity is seen Electronically Signed on 05-12-2019 16:59:13 EDT by Luis Mcgill
== END 2019-05-11 20:12 | disposition other institution (70) ==
LOC: M ED 10:42 → M ED INP 15:17 → M MSPAV 19:46
PROVIDERS: ADMIT Family Medicine; ATTEND Family Medicine
DX: F03.91 Unspecified dementia, unspecified severity, with behavioral disturbance (principal); I48.91 Unspecified atrial fibrillation; Z95.0 Presence of cardiac pacemaker; Z95.1 Presence of aortocoronary bypass graft; Z98.61 Coronary angioplasty status; I25.10 Atherosclerotic heart disease of native coronary artery without angina pectoris; I10 Essential (primary) hypertension; E78.5 Hyperlipidemia, unspecified; E11.9 Type 2 diabetes mellitus without complications; R80.9 Proteinuria, unspecified; Z79.01 Long term (current) use of anticoagulants; Z79.899 Other long term (current) drug therapy
CPT/HCPCS: 36415; 71045; 80048; 80053; 80076; 80307; 81001; 82607; 82746; 84443; 85027; 86780; 87081; 93005; 96372; 99284; G0378; G0480; J1630; J2060